=== PATIENT | male | born 1940 | race Caucasian/White ===

== ENCOUNTER 2018-03-31 11:57 | Inpatient (IN) | payer MEDICARE ==
[2018-03-31] MEDS: SOD CHLORIDE 0.9% 1,000 ML IV (12:29)
[2018-03-31 12:40] LABS: ADD MAN DIFF? NO
[2018-03-31 12:42] LABS: WHITE BLOOD COUNT 6.2 10^3/ul (4.8-10.8)
[2018-03-31 12:42] LABS: BASOPHILS % 0.3 % (0.0-2.0); EOSINOPHILS # 0.1 10^3/ul (0.0-0.5); EOSINOPHILS % 1.3 % (0.0-7.0); HEMATOCRIT 40.1 % (42.0-52.0); HEMOGLOBIN 13.7 g/dl (14.0-18.0); LYMPHOCYTES # 1.6 10^3/ul (0.8-2.9); LYMPHOCYTES % 25.6 % (15.0-51.0); MEAN CORPUSCULAR HEMOGLOBIN 32.8 pg (29.0-33.0); MEAN CORPUSCULAR HGB CONC 34.2 g/dl (32.0-37.0); MEAN CORPUSCULAR VOLUME 95.9 fl (82.0-101.0); MEAN PLATELET VOLUME 9.9 fl (7.4-10.4); MONOCYTE # 0.6 10^3/ul (0.3-0.9); MONOCYTES % 9.3 % (0.0-11.0); NEUTROPHIL # 3.9 10^3/ul (1.6-7.5); NEUTROPHILS % 63.2 % (39.0-77.0); PLATELET COUNT 167 10^3/UL (140-415); RED BLOOD COUNT 4.18 10^6/ul (4.70-6.10); RED CELL DISTRIBUTION WIDTH 12.9 % (11.5-14.5)
[2018-03-31 13:07] LABS: INR 0.99; PROTIME 13.2 Sec (11.9-14.9)
[2018-03-31 13:08] LABS: PARTIAL THROMBOPLASTIN TIME 29.2 Sec (25.0-35.0)
[2018-03-31 13:11] LABS: ALANINE AMINOTRANSFERASE 44 IU/L (13-69); ALBUMIN 3.4 g/dl (3.3-4.9); ALKALINE PHOSPHATASE 81 IU/L (42-121); ANION GAP 13 (8-16); ASPARTATE AMINO TRANSFERASE 42 IU/L (15-46); BLOOD UREA NITROGEN 15 mg/dl (7-20); CALCIUM 9.3 mg/dl (8.4-10.2); CARBON DIOXIDE 25 mmol/L (21-31); CHLORIDE 102 mmol/L (97-110); CREATININE 0.74 mg/dl (0.61-1.24); GLUCOSE 138 mg/dl (70-220); POTASSIUM 4.6 mmol/L (3.5-5.1); SODIUM 135 mmol/L (135-144)
[2018-03-31 13:24] LABS: B-TYPE NATRIURETIC PEPTIDE 2630 PG/ML (0-450); TROPONIN-I 0.026 ng/ml (0.000-0.120)
[2018-03-31] MEDS ORDERED: DILTIAZEM-D5W 125MG/125ML DRIP 125 ML IV (13:25)
[2018-03-31 13:29] LABS: FREE THYROXINE INDEX (Calc) 2.45 ug/ml (0.65-3.89); T3 UPTAKE 37.1 % (23.5-40.5); T4 (THYROXINE) 6.6 ug/dl (5.5-11.0)
[2018-03-31] MEDS: DILTIAZEM 25 MG INJ IV (13:36)
[2018-03-31 13:44] LABS: ETHANOL < 10.0 mg/dl
[2018-03-31] MEDS: DILTIAZEM-D5W 125MG/125ML DRIP 125 ML IV (13:47)
[2018-03-31] MEDS: SOD CHLORIDE 0.9% 100 ML (14:12)
[2018-03-31] MEDS: IOHEXOL 100 ML (14:13)
[2018-03-31 14:48] LABS: AMPHETAMINE/METHAMPHETAMINE Negative (NEGATIVE); BARBITURATES Negative (NEGATIVE); BENZODIAZEPINES Negative (NEGATIVE); CANNABINOIDS Negative (NEGATIVE); COCAINE Negative (NEGATIVE); OPIATES Negative (NEGATIVE)
[2018-03-31] MEDS ORDERED: ONDANSETRON 4 MG INJ IV (15:00)
[2018-03-31] MEDS ORDERED: ACETAMINOPHEN 325 MG TAB PO (15:00)
[2018-03-31] MEDS: MAGNESIUM SULFATE 2 GM/50 ML 50 ML IVPB (15:11)
[2018-03-31] MEDS: ASPIRIN 81 MG TAB PO (15:31)
[2018-03-31] MEDS: DIGOXIN 0.25 MG TAB PO (15:32)
[2018-03-31 19:03] LABS: CREATINE KINASE 38 IU/L (23-200)
[2018-03-31 19:17] LABS: CK INDEX 3.3; CK-MB 1.26 ng/ml (0.0-2.4); TROPONIN-I 0.028 ng/ml (0.000-0.120)
[2018-03-31] MEDS: RIVAROXABAN 20 MG TABLET PO (22:07)
[2018-03-31] MEDS: DIGOXIN 500 MCG INJ IV (23:14)
[2018-03-31] MEDS ORDERED: ZOLPIDEM 5 MG TAB PO (23:30)
[2018-04-01 01:34] LABS: CREATINE KINASE 33 IU/L (23-200)
[2018-04-01 01:50] LABS: CK INDEX 3.5; CK-MB 1.17 ng/ml (0.0-2.4); TROPONIN-I 0.047 ng/ml (0.000-0.120)
[2018-04-01] MEDS: DIGOXIN 500 MCG INJ IV (05:29)
[2018-04-01 05:49] LABS: WHITE BLOOD COUNT 5.4 10^3/ul (4.8-10.8)
[2018-04-01 05:49] LABS: ADD MAN DIFF? NO; BASOPHILS % 0.6 % (0.0-2.0); EOSINOPHILS # 0.2 10^3/ul (0.0-0.5); EOSINOPHILS % 3.3 % (0.0-7.0); HEMATOCRIT 37.4 % (42.0-52.0); HEMOGLOBIN 12.5 g/dl (14.0-18.0); LYMPHOCYTES # 1.9 10^3/ul (0.8-2.9); LYMPHOCYTES % 35.7 % (15.0-51.0); MEAN CORPUSCULAR HEMOGLOBIN 32.2 pg (29.0-33.0); MEAN CORPUSCULAR HGB CONC 33.4 g/dl (32.0-37.0); MEAN CORPUSCULAR VOLUME 96.4 fl (82.0-101.0); MEAN PLATELET VOLUME 10.1 fl (7.4-10.4); MONOCYTE # 0.5 10^3/ul (0.3-0.9); MONOCYTES % 9.4 % (0.0-11.0); NEUTROPHIL # 2.8 10^3/ul (1.6-7.5); NEUTROPHILS % 50.8 % (39.0-77.0); PLATELET COUNT 150 10^3/UL (140-415); RED BLOOD COUNT 3.88 10^6/ul (4.70-6.10); RED CELL DISTRIBUTION WIDTH 13.2 % (11.5-14.5)
[2018-04-01 06:34] LABS: ANION GAP 9 (8-16); BLOOD UREA NITROGEN 13 mg/dl (7-20); CALCIUM 8.5 mg/dl (8.4-10.2); CARBON DIOXIDE 27 mmol/L (21-31); CHLORIDE 106 mmol/L (97-110); CREATININE 0.67 mg/dl (0.61-1.24); GLUCOSE 97 mg/dl (70-220); MAGNESIUM 1.9 mg/dl (1.7-2.5); SODIUM 138 mmol/L (135-144)
[2018-04-01 06:39] LABS: TROPONIN-I 0.055 ng/ml (0.000-0.120)
[2018-04-01] MEDS: D5W-0.45 NACL + KCL 20 MEQ 1,000 ML IV (10:22)
[2018-04-01] MEDS: DILTIAZEM (CD) 180 MG CAP PO (10:22)
[2018-04-01] MEDS ORDERED: ONDANSETRON 4 MG INJ IV (12:00)
[2018-04-01] MEDS ORDERED: AL HYDROX/MG HYDROX/SIMETH 30 ML CUP PO (12:00)
[2018-04-01] MEDS ORDERED: PHENYLephrine (100 MCG/ML) 5ML SYG (17:12)
[2018-04-01] MEDS ORDERED: LIDOCAINE 2% (SDV) 5 ML INJ (17:12)
[2018-04-01] MEDS ORDERED: PROPOFOL 40 ML (17:13)
[2018-04-01] MEDS: RIVAROXABAN 20 MG TABLET PO (18:43)
[2018-04-01] MEDS: ATORVASTATIN 20 MG TAB PO (21:23)
[2018-04-02 06:37] LABS: ADD MAN DIFF? NO
[2018-04-02 06:38] LABS: BASOPHILS % 0.2 % (0.0-2.0); EOSINOPHILS # 0.2 10^3/ul (0.0-0.5); EOSINOPHILS % 3.6 % (0.0-7.0); HEMATOCRIT 36.5 % (42.0-52.0); HEMOGLOBIN 12.4 g/dl (14.0-18.0); LYMPHOCYTES # 1.2 10^3/ul (0.8-2.9); LYMPHOCYTES % 27.5 % (15.0-51.0); MEAN CORPUSCULAR HEMOGLOBIN 33.6 pg (29.0-33.0); MEAN CORPUSCULAR VOLUME 98.9 fl (82.0-101.0); MEAN PLATELET VOLUME 10.2 fl (7.4-10.4); MONOCYTE # 0.4 10^3/ul (0.3-0.9); NEUTROPHIL # 2.6 10^3/ul (1.6-7.5); NEUTROPHILS % 58.5 % (39.0-77.0); PLATELET COUNT 147 10^3/UL (140-415); RED BLOOD COUNT 3.69 10^6/ul (4.70-6.10)
[2018-04-02 06:38] LABS: WHITE BLOOD COUNT 4.4 10^3/ul (4.8-10.8)
[2018-04-02 07:13] LABS: ANION GAP 7 (8-16); BLOOD UREA NITROGEN 11 mg/dl (7-20); CALCIUM 8.7 mg/dl (8.4-10.2); CARBON DIOXIDE 28 mmol/L (21-31); CHLORIDE 106 mmol/L (97-110); CHOL/HDL RATIO 3.2 RATIO; CHOLESTEROL 140 mg/dl (100-200); CREATININE 0.75 mg/dl (0.61-1.24); GLUCOSE 95 mg/dl (70-220); HDL CHOLESTEROL 43 mg/dl (31-75); LDL CHOLESTEROL,CALCULATED 86 mg/dl; MAGNESIUM 1.8 mg/dl (1.7-2.5); POTASSIUM 4.4 mmol/L (3.5-5.1); SODIUM 137 mmol/L (135-144); TRIGLYCERIDES 55 mg/dl (0-149)
[2018-04-02 07:18] LABS: T4 (THYROXINE) 6.3 ug/dl (5.5-11.0)
[2018-04-02] MEDS: DILTIAZEM (CD) 180 MG CAP PO (08:02)
== END 2018-04-02 13:35 | disposition home or self-care (01) | DRG 310 ==
LOC: E/R 11:57 → 6WM 14:46
PROC: B246ZZ4 Ultrasonography of Right and Left Heart, Transesophageal (ICD-10-PCS; principal; 2018-04-01 16:30)
PROC: 5A2204Z Restoration of Cardiac Rhythm, Single (ICD-10-PCS; 2018-04-01 16:30)
DX: I48.92 Unspecified atrial flutter (principal); I35.1 Nonrheumatic aortic (valve) insufficiency; I10 Essential (primary) hypertension; E78.5 Hyperlipidemia, unspecified; M16.0 Bilateral primary osteoarthritis of hip; R07.89 Other chest pain; Z79.82 Long term (current) use of aspirin
CPT/HCPCS: 36415; 71045; 71275; 80048; 80053; 80061; 80307; 82550; 82553; 83735; 83880; 84436; 84443; 84479; 84484; 85025; 85610; 85730; 92960; 93005; 93306; 93312; 93320; 93325; 96361; 96365; 96375; 99291-25

== ENCOUNTER → 2018-05-16 | Outpatient (CLI) | payer MEDICARE ==
[2018-05-16 20:03] LABS: ADD MAN DIFF? NO
[2018-05-16 20:09] LABS: WHITE BLOOD COUNT 5.1 10^3/ul (4.8-10.8)
[2018-05-16 20:09] LABS: BASOPHILS % 0.6 % (0.0-2.0); EOSINOPHILS # 0.2 10^3/ul (0.0-0.5); EOSINOPHILS % 3.9 % (0.0-7.0); HEMATOCRIT 40.3 % (42.0-52.0); HEMOGLOBIN 13.8 g/dl (14.0-18.0); LYMPHOCYTES % 39.9 % (15.0-51.0); MEAN CORPUSCULAR HEMOGLOBIN 31.8 pg (29.0-33.0); MEAN CORPUSCULAR HGB CONC 34.2 g/dl (32.0-37.0); MEAN CORPUSCULAR VOLUME 92.9 fl (82.0-101.0); MEAN PLATELET VOLUME 9.9 fl (7.4-10.4); MONOCYTE # 0.5 10^3/ul (0.3-0.9); NEUTROPHIL # 2.4 10^3/ul (1.6-7.5); NEUTROPHILS % 46.4 % (39.0-77.0); PLATELET COUNT 176 10^3/UL (140-415); RED BLOOD COUNT 4.34 10^6/ul (4.70-6.10); RED CELL DISTRIBUTION WIDTH 12.2 % (11.5-14.5)
[2018-05-16 20:29] LABS: CARBON DIOXIDE 27 mmol/L (21-31); CHLORIDE 107 mmol/L (97-110); POTASSIUM 4.4 mmol/L (3.5-5.1); SODIUM 141 mmol/L (135-144)
[2018-05-16 20:30] LABS: ANION GAP 11 (8-16); BLOOD UREA NITROGEN 17 mg/dl (7-20); CREATININE 0.84 mg/dl (0.61-1.24); GLUCOSE 97 mg/dl (70-220)
[2018-05-16 20:34] LABS: INR 1.04; PROTIME 13.7 Sec (11.9-14.9); PT RATIO 1.1
== END | disposition home or self-care (01) ==
LOC: LAB 19:48
DX: I48.92 Unspecified atrial flutter (principal); I10 Essential (primary) hypertension
CPT/HCPCS: 80048; 85025; 85610

== ENCOUNTER 2018-05-20 11:34 | Day surgery (SDC) | payer MEDICARE ==
[2018-05-20] MEDS ORDERED: PROPOFOL 20 ML (11:45)
[2018-05-20] MEDS ORDERED: PHENYLephrine (100 MCG/ML) 5ML SYG (12:00)
[2018-05-20] MEDS ORDERED: MIDAZOLAM 1 MG/ML 2 ML INJ (12:32)
[2018-05-20] MEDS ORDERED: GLYCOPYRROLATE 0.4 MG INJ (12:52)
[2018-05-20] MEDS ORDERED: ONDANSETRON 4 MG INJ IV (13:00)
[2018-05-20] MEDS ORDERED: FENTAnyl 50 MCG/ML VIAL IV ×2 (13:00)
[2018-05-20] MEDS ORDERED: LABETALOL HCL 20MG INJ IV (13:00)
[2018-05-20] MEDS ORDERED: hydrALAzine 20 MG INJ IV (13:00)
[2018-05-20] MEDS ORDERED: HYDROmorphONE 1 MG/5 ML IV SYRINGE IV ×2 (13:00)
== END 2018-05-20 14:27 | disposition home or self-care (01) ==
LOC: CCL 11:34 → SDS 11:34 → CCL 14:27
DX: I48.92 Unspecified atrial flutter (principal)
CPT/HCPCS: 71045; 92960; 93005